=== PATIENT | male | born 1960 | race Caucasian/White ===

== ENCOUNTER 2017-11-23 10:40 | Emergency (ER) | payer OTHER, SELFPAY ==
[2017-11-23 10:44] VITALS: BP 146/87; PULSE 79; RESP 16; O2SAT 96
--- NOTE | 2017-11-23 12:07 | ED_ITS ---
HPI - Abdominal Pain <NIKI Yarbrough - Last Filed: 11/23/17 22:03> General Chief Complaint: Abdominal Pain Stated Complaint: DISCOMFORT/BELLYBUTTON STRING Time Seen by Provider: 11/23/17 12:07 Source: patient Mode of arrival: ambulatory Limitations: no limitations History of Present Illness HPI narrative: 57-year-old male here for complaint of having a scant amount of drainage from his umbilicus area over the past 7-8 months. He reports that he had surgery for umbilical repair to the umbilicus area approximately 2 years ago. He states that he has had some minor discomfort to the area on and off over this past 7 - 8 months as well and has had slight drainage that has been yellowish to sanguinous. He denies any fevers or chills. He denies any abscess to the area. No trauma to the area. He reports that today he was taking a shower and noticed that there was a blue thread that was hanging from his umbilicus area. He denies any discomfort at this timeframe. No other concerns or complaints. MD complaint: other Related Data Home Medications Medication Instructions Recorded Confirmed ibuprofen 1 tab PO Q4H PRN 11/23/17 11/23/17 omeprazole 20 mg PO DAILY 11/23/17 11/23/17 telmisartan [Micardis] 20 mg PO DAILY 11/23/17 11/23/17 Previous Rx's Medication Instructions Recorded levofloxacin [Levaquin] 500 mg PO DAILY #7 tab 11/23/17 Allergies Allergy/AdvReac Type Severity Reaction Status Date / Time naproxen [From NAPROSYN] Allergy Unknown MOUTH SORES Verified 11/23/17 10:44 Sulfa (Sulfonamide Allergy Unknown RASH, Verified 11/23/17 10:44 Antibiotics) URTICARIA [SULFA (SULFONAMIDE ANTIBIOTICS)] Review of Systems <NIKI Yarbrough - Last Filed: 11/23/17 22:03> Constitutional Denies chills, Denies fever(s), Denies lethargy and Denies weakness Eyes Denies change in vision, Denies eye discharge, Denies irritation and Denies loss of vision ENT Ears, Nose, Mouth, and Throat: Denies change in voice, Denies neck pain and Denies sore throat Cardiovascular Denies chest pain, Denies irregular heart rhythm, Denies lightheadedness, Denies palpitations, Denies dyspnea, Denies dyspnea on exertion and Denies orthopnea Respiratory Denies cough, Denies dyspnea, Denies dyspnea on exertion and Denies wheezing Gastrointestinal Comments: Tenderness on and off a to umbilicus area with blue thread protruding from his umbilicus Genitourinary Denies hematuria, Denies flank pain, Denies urinary incontinence and Denies urinary urgency Musculoskeletal Denies neck pain Integumentary/Breasts Denies pruritus, Denies erythema, Denies rash and Denies wounds Neurologic Denies confusion, Denies loss of vision and Denies weakness Psychiatric Denies anxiety, Denies confusion, Denies depression, Denies homicidal ideation and Denies suicidal ideation Endocrine Denies palpitations Hematologic/Lymphatic Denies easy bruising Allergic/Immunologic Denies wheezing Exam <NIKI Yarbrough - Last Filed: 11/23/17 22:03> Initial Vital Signs Initial Vital Signs: Vital Signs Pulse Rate 79 11/23/17 10:44 Respiratory Rate 16 11/23/17 10:44 Blood Pressure 146/87 H 11/23/17 10:44 Pulse Oximetry 96 11/23/17 10:44 Const General: cooperative and well developed Nutritional Appearance: well nourished Orientation: alert, awake, oriented x3 and not confused HENMI Mouth: oral mucosae normal and moist mucous membranes Eyes Conjunctivae: conjunctivae normal Sclera: sclerae normal Pupils: PERRL EOM: EOM intact bilaterally Resp Effort & Inspection: normal respiratory effort, able to speak in complete sentences, no respiratory distress and no use of accessory muscles Auscultation: clear to auscultation bilaterally, no rales, no rhonchi and no wheezes Cardio Rate: regular rate Rhythm: regular rhythm Heart Sounds: no click, no gallops, no murmurs and no rubs Pulses: normal peripheral pulses GI Inspection: non-distended Palpation: soft, no hepatosplenomegaly, No guarding, No pulsatile mass and No tender Auscultation: normal bowel sounds Other: No tenderness on exam to abdominal area or to umbilicus area. No induration or fluctuance. No masses felt. Interior of umbilicus shows small opening of approximately 5 mm with 1 cm of blue protruding suture from the middle of the umbilicus. No drainage Skin General: no rashes or lesions noted, No jaundice and No petechiae Neuro General: alert, oriented x3, gait normal and no focal motor deficits Speech: speech normal <Elvis Vera MD - Last Filed: 11/26/17 08:37> Initial Vital Signs Initial Vital Signs: Vital Signs Pulse Rate 79 11/23/17 10:44 Respiratory Rate 16 11/23/17 10:44 Blood Pressure 146/87 H 11/23/17 10:44 Pulse Oximetry 96 11/23/17 10:44 Course <NIKI Yarbrough - Last Filed: 11/23/17 22:03> Vital Signs - 8 hr 11/23/17 10:44 Pulse Rate 79 Respiratory Rate 16 Blood Pressure 146/87 H Pulse Oximetry 96 <Elvis Vera MD - Last Filed: 11/26/17 08:37> Vital Signs - 8 hr 11/23/17 10:44 Pulse Rate 79 Respiratory Rate 16 Blood Pressure 146/87 H Pulse Oximetry 96 MDM - Abdominal Pain <NIKI Yarbrough - Last Filed: 11/23/17 22:03> MDM Narrative Medical decision making narrative: Signs and symptoms presents as suture from a surgery 2 years ago for umbilical hernia repair protruding from the umbilicus. Discussed case with on-call surgery Dr. petersen who requested that the suture be cut to the skin level here in the emergency room and that patient be placed on Levaquin. And outpatient visit to surgery here in the next few days. Patient is to call surgery office to schedule follow-up appointment. He is prescribed Levaquin. [id number] Tylenol as needed for any discomfort. For any worsening symptoms return to the emergency room. Discharge Plan Departure Patient Disposition: Home, Self-Care Clinical Impression: Abscess involving suture Discharge Date/Time: 11/23/17 13:59 Interventions: ED Discharge Assessment Last Done: 11/23/17 13:58 Instructions: Levofloxacin Activity Restrictions/Additional Instructions: Signs and symptoms presents as suture starting to protrude from a prior surgery site. Follow up with surgery here in the next few days call the office at number provided to schedule outpatient visit. Keep wound dressed with dry dressing change daily. You have been placed on antibiotic called Levaquin use as directed [id number] Tylenol as needed for any discomfort. For any worsening symptoms return to the emergency room. Prescriptions: New levofloxacin [Levaquin] 500 mg tablet 500 mg PO DAILY Qty: 7 RF: 0 No Action omeprazole 20 mg capsule,delayed release(DR/EC) 20 mg PO DAILY RF: 0 telmisartan [Micardis] 20 mg tablet 20 mg PO DAILY RF: 0 ibuprofen 400 mg tablet 1 tab PO Q4H PRN (Reason: Pain, Moderate) RF: 0 Referrals: Provider,Conversion [Non-Staff] - Saira Petersen MD [Physician] - <Elvis Vera MD - Last Filed: 11/26/17 08:37> Sign Out Provider Sign Out Attestation: The PA/REGULATORY SERVICES CONSULTANT functioned independently for the care of this pt, I was available, but not asked to participate in care. I am unable to determine appropriateness of management without personally examining the pt.
[2017-11-23 13:29] VITALS: TEMP 37.1
[2017-11-23 13:37] VITALS: BP 147/96; PULSE 77; RESP 16; TEMP 36.4; O2SAT 97
== END 2017-11-23 13:59 | disposition home or self-care (01) ==
PROVIDERS: Emergency Provider Nurse Practitioner Family; Family Provider Pediatrics
DX: T81.4XXA Infection following a procedure, initial encounter (principal)
CPT/HCPCS: 99282

== ENCOUNTER 2017-12-12 05:55 | Day surgery (SDC) | payer OTHER, SELFPAY ==
[2017-12-12] VITALS (7 sets, daily range): BP systolic 117–149; BP diastolic 75–87; PULSE 74–81; RESP 10–16; TEMP 36.4–36.8; O2SAT 94–100; BMI 35.6
--- NOTE | 2017-12-12 | PATH_ITS ---
[facility] Accession Number: [id number] . 01 Material submitted: . HERNIA SAC - UMBILICUS . 02 Diagnosis: Umbilicus, Hernia Sac, Biopsy: Fragments of fibrous tissue consistent with scar and foreign body giant cell reaction to foreign material, favor suture material. No evidence of neoplasm. [facility]/12/14/2017 . 02 Electronically signed: . Bryanna Prasad MD, Pathologist NPI- [id number] . 01 Gross description: . Received in formalin, labeled hernia sac - umbilicus, is a piece of turner-pink and focally blue stained fibrous tissue (2.5 x 1.2 x 0.6 cm). Bacon Skinner serial sections submitted in cassette A1. (JM:[id number]) /OZO . 02 Pathologist provided ICD-10: R10.9 . 02 CPT . 874145 Performed at: 01 [facility] [address] [facility], [place], [place] [id number] MD Kristian Sewell MD Phone: [phone] Performed at: 02 [facility] [address] [place], [place] [id number] MD Ankur Duran MD Phone: [phone]
[2017-12-12] MEDS: LACTATED RINGERS 1,000 ML 42 ML IV (06:57)
--- NOTE | 2017-12-12 07:50 | SUR.OPER ---
Supine on padded OR bed, head on pillow, arms secured on padded arm boards at <90 degrees abduction, legs uncrossed, safety belt at thigh, tape over blanket over lower legs.
[2017-12-12] MEDS: CEFAZOLIN 2 GM/100 ML FROZ.PIGGY IV (08:58)
--- NOTE | 2017-12-12 09:04 | PM.PREOP ---
Pre-operative Note Interval Note Pre-op Check: Yes History & Physical Reviewed by Physician Changes: No
[2017-12-12] MEDS: LIDOCAINE 1% W/EPI INJ 20 ML INJ (09:36)
[2017-12-12] MEDS: BUPIVACAINE 0.5% (PF) VIAL 30 ML INJ (09:37)
[2017-12-12] MEDS: CEFAZOLIN 1 GM VIAL IV (09:48)
[2017-12-12] MEDS: fentaNYL 100 MCG/2 ML INJ 25 MCG IV ×2 (10:10→10:15)
--- NOTE | 2017-12-12 10:10 | P.OP_ITS ---
Operative Date/Time/Diagnoses Date of procedure: 12/12/17 Time of procedure: 10:05 Pre-op diagnosis: Chronically infected wound Post-op diagnosis: same Procedure & Clinicians Procedure: Exploration of chronically infected wound with removal of all permanent suture and direct repair of recurrent hernia. Same procedure as scheduled: Yes Indications: Chronically infected wound after umbilical hernia repair Surgeon: Saira Petersen Click Yes if Unassisted: Yes Anesthesia Type: General ([place]) Operative Notes Findings: 1. Multiple permanent sutures with some protruding through the umbilical opening. 2. Recurrent 3 cm hernia at the previous operative site Closure Type: primary Specimen(s): other (Portions of hernia sac) Estimated Blood Loss (mL): 5 Blood products transfused: none Procedure in detail: After obtaining informed consent, the patient is brought to the operating room and placed in the supine position on the operating table. Following successful induction of general endotracheal anesthesia, appropriate padding of all bony prominences and placement of appropriate monitors, the abdomen is prepped and draped in the standard surgical fashion a time-out was held per SCOAP protocol. Following infiltration with local anesthetic to create a field block, the healed infraumbilical incision was reopened and carried down through the skin and subcutaneous tissue. At the fascial surface I was able to visualize permanent sutures, consistent with Ethibond, in the fascia and in the skin of the umbilicus. These permanent sutures protruded through the umbilical opening. Using sharp dissection, all permanent sutures and inflammatory material was carefully removed. The wound was irrigated with Ancef containing solution and all particulate matter and inflammatory fluid removed. The edges of the fascia were defined carefully. The resultant 3 cm hernia was closed with interrupted 1 -0 Vicryl sutures. The umbilicus was reconstructed with 3 0 Vicryl. The remaining incisional defect was closed in layers with Vicryl and Monocryl suture after copious irrigation with Ancef solution. A Dermabond dressing was applied. All sponge, needle, and instrument counts were correct at the conclusion of the case. The patient was allowed awaken from anesthesia without difficulty and taken to the postanesthesia care unit in good condition. Complications: none Condition: stable Disposition: PACU Plan for aftercare: 1. Discharge to home 2. Follow up with me in my office in 2 weeks
[2017-12-12] MEDS: OXYCODONE/ACETAMINOPHEN 5/325 TABLET 1 TAB PO (10:30)
== END 2017-12-12 11:03 | disposition home or self-care (01) ==
PROVIDERS: Visit Provider Surgery
PROC: (CPT 49585; principal; 2017-12-12 07:45)
DX: K42.9 Umbilical hernia without obstruction or gangrene (principal); T81.4XXA Infection following a procedure, initial encounter; Z98.890 Other specified postprocedural states; M79.5 Residual foreign body in soft tissue; I10 Essential (primary) hypertension
CPT/HCPCS: 49585; 88304; J0330; J0690; J1100; J2250; J2405; J2704; J3010

== ENCOUNTER → 2021-06-15 09:27 | Outpatient (CLI) | payer OTHER, SELFPAY ==
--- NOTE | 2021-06-15 | DI.MRI.S_ITS ---
PROCEDURE: MR LUMBAR SPINE WO CON INDICATIONS: Spondylolisthesis, lumbar region TECHNIQUE: Noncontrast sagittal T1 spin echo and T2 fast echo, sagittal STIR, axial T1 and T2 fast spin echo through the lumbar spine. In cases with scoliosis, additional coronal T2 fast spin echo may be performed. COMPARISON: [facility] Outside Film, MR, MR LUMBAR SPINE WITHOUT CONTRAST, 12/09/2018, 14:16. [facility], CR, XR LUMBAR SPINE WITH FLEXION EXTENSION 5 VIEWS, 03/25/2021, 9:56. FINDINGS: Image quality: Excellent. Alignment and Curvature: There are 5 lumbar type vertebral bodies present by plain film. There is loss of normal lumbar lordosis. There is mild grade 1 anterolisthesis of L4 on L5 and L5 on S1. Bone Marrow: Marrow is of normal overall signal. No acute vertebral body compression fractures. Bilateral L5-S1 pars interarticularis defects are present. There is mild reactive signal within the endplates adjacent to the L4-L5 and L5-S1 intervertebral discs. Right L5-S1 hemilaminotomy. Spinal Cord: Conus medullaris terminates at the lower L1 level. Visualized cord demonstrates normal signal and size. Paraspinous Soft Tissues: No paravertebral masses. There is a small amount of high T2 signal intensity interspersed between the L3 and L4 spinous processes, as before. T12-L1: Mild disc desiccation. No significant canal, or foraminal stenosis. No significant change. L1-L2: Mild disc desiccation. No significant canal, or foraminal stenosis. No significant change. L2-L3: Mild facet hypertrophy mild epidural lipomatosis. No significant canal, or foraminal stenosis. No significant change. L3-L4: Mild facet and ligamentum flavum hypertrophy. Mild epidural lipomatosis. Mild disc desiccation and diffuse disc bulge. Mild canal stenosis. Mild bilateral foraminal stenosis. No significant change. L4-L5: Moderate disc height loss and desiccation. Mild diffuse disc bulge. Moderate bilateral facet hypertrophy. Mild epidural lipomatosis. Increased, moderate to severe canal stenosis at the lower L4 level. Severe left greater than right foraminal stenosis with left greater than right L4 nerve root compression is unchanged. L5-S1: Moderate disc height loss and desiccation. Mild diffuse disc bulge/osteophyte. Mild bilateral facet hypertrophy. Mild canal stenosis. Moderate to severe left and severe right foraminal stenosis. Right greater than left L5 nerve root compression. No significant change. IMPRESSION: 1. Grade I isthmic spondylolisthesis at L4-L5 and L5-S1. 2. Multilevel degenerative disc and facet disease, as well as ligamentum flavum hypertrophy and epidural lipomatosis. 3. Postsurgical sequelae. 4. Multilevel canal stenoses, worst at the lower L4 level, where there is increased, moderate to severe canal stenosis as described above. 5. Multilevel foraminal stenoses, worst at L4-L5 and L5-S1 where there is associated intraforaminal nerve root compression. Recommend correlation with clinical symptoms to ascertain relevance of this finding. Dictated by: Maxime Ng M.D. on 06/15/2021 at 10:41 Approved by: Maxime Ng M.D. on 06/15/2021 at 10:47
== END ==
PROVIDERS: PCP Physician Assistant Surgical; Referring Provider Physician Assistant Surgical; Visit Provider Physician Assistant Surgical
DX: M43.16 Spondylolisthesis, lumbar region (principal); M43.17 Spondylolisthesis, lumbosacral region; M51.36 Other intervertebral disc degeneration, lumbar region; M51.37 Other intervertebral disc degeneration, lumbosacral region; M48.061 Spinal stenosis, lumbar region without neurogenic claudication; M48.07 Spinal stenosis, lumbosacral region
CPT/HCPCS: 72148

== ENCOUNTER → 2022-09-06 10:18 | Outpatient (CLI) | payer OTHER, SELFPAY ==
--- NOTE | 2022-09-06 | DI.MRI.S_ITS ---
PROCEDURE: MR KNEE LT WO CON INDICATIONS: Pain in left knee TECHNIQUE: Noncontrast sagittal PD fast spin echo and T2 fast spin echo with fat saturation, sagittal 3-D FLASH with fat saturation; coronal T1 spin echo and PD fast spin echo with fat saturation, and axial PD fast spin echo with fat saturation through the knee. COMPARISON: None. FINDINGS: Image quality: Excellent. Anterior Cruciate Ligament: Intact. Posterior Cruciate Ligament: Intact. Medial Collateral Ligament: Mild edema surrounding the proximal to mid medial collateral ligament may be reactive or related to a low-grade sprain. Lateral Collateral Ligament: Intact. Medial Meniscus: There is complex tearing of the medial meniscus. A superiorly displaced flap component is seen at the posterior aspect of the meniscal body with meniscal tissue extending into the medial femoral gutter. There is a horizontal oblique component of the more anterior portion of the meniscal body extending to the inner third of the tibial articular surface. A shallow radial component is seen at the posterior horn as well as horizontal oblique component extending to the middle third of the femoral articular surface. Lateral Meniscus: Intact. Medial and Lateral Tendons: The semimembranosus tendon insertions and meniscocapsular junction appear intact. Visualized portions of the pes anserinus tendons appear normal. No abnormal bursal fluid. The long and short heads of the biceps femoris tendon appear intact. The popliteus tendon appears intact. No signs of posterolateral corner injury. Iliotibial band appears normal. Anterior Structures: The quadriceps and patellar tendons appear intact. No patellar subluxation. No femoral trochlear dysplasia or ventral trochlear prominence. No edema in the infrapatellar fat pad. Bones: No acute trabecular bone injury or fracture. Medial Femorotibial Cartilage: High-grade partial-thickness cartilage loss is seen at the far posterior non weight-bearing portion of the medial femoral condyle. Lateral Femorotibial Cartilage: No focal cartilage defect. Patellofemoral Cartilage: Mild partial-thickness cartilage thinning and surface irregularity in the patellofemoral compartment. Soft Tissues: Moderate joint effusion. Trace medial popliteal cyst. A small amount of fluid is seen tracking along the popliteus tendon sheath. The musculature surrounding the knee is normal in bulk. Nonspecific subcutaneous prepatellar soft tissue edema. IMPRESSION: 1. Complex tearing of the medial meniscus involving the posterior horn and body with multiple horizontal oblique components as well as a shallow radial component at the posterior horn and a superiorly displaced meniscal flap component at the meniscal body. 2. Mild edema surrounding the proximal medial collateral ligament may be reactive to the adjacent meniscal tear versus secondary to a low-grade sprain. 3. Focal grade 3 chondromalacia at the far posterior non weight-bearing portion of the medial femoral condyle. Mild grade 2 chondromalacia in the anterior compartment. 4. Moderate joint effusion. Trace medial and small lateral popliteal cysts. Approved by: Avinash Greenwood M.D. on 09/06/2022 at 11:53
== END ==
PROVIDERS: PCP Family Medicine; Referring Provider Family Medicine; Visit Provider Family Medicine
DX: S83.232A Complex tear of medial meniscus, current injury, left knee, initial encounter (principal); M25.562 Pain in left knee; M25.362 Other instability, left knee; M23.8X9 Other internal derangements of unspecified knee; M94.262 Chondromalacia, left knee; M25.462 Effusion, left knee; M71.22 Synovial cyst of popliteal space [Baker], left knee
CPT/HCPCS: 73721

== ENCOUNTER → 2023-12-31 08:57 | Outpatient (CLI) | payer MEDICARE, OTHER, SELFPAY ==
[2023-12-31 10:44] LABS: Hemoglobin A1C% w Est Avg Glu 5.6 % (4.0-6.0)
[2023-12-31 10:53] LABS: Alanine Aminotransferase 37 IU/L (<50); Albumin 4.4 g/dL (3.5-5.0); Albumin Globulin Ratio 1.8 (1.0-2.8); Alkaline Phosphatase 64 U/L (38-126); Aspartate Aminotransferase 38 IU/L (17-59); BUN Creatinine Ratio 15.6 (6-22); Bilirubin Total 0.6 mg/dL (0.2-1.3); Blood Urea Nitrogen 12 mg/dL (9-20); Calcium 9.6 mg/dL (8.4-10.2); Carbon Dioxide 27 mmol/L (22-32); Chloride 105 mmol/L (98-107); Cholesterol 204 mg/dL (140-199); Estimated Glomerular Filt Rate > 60 mL/min (>60); Globulin 2.5 g/dL (1.7-4.1); Glucose 106 mg/dL (80-110); HDL Cholesterol 60 mg/dL (40-60); HEMOLYSIS < 15 (0-50); LDL Cholesterol Calculated 124 mg/dL (<100); Potassium 4.4 mmol/L (3.4-5.1); Sodium 138 mmol/L (137-145); Total Protein 6.9 g/dL (6.3-8.2); Triglycerides 102 mg/dL (35-150)
[2023-12-31 17:45] LABS: HIV 1 & 2 Ab/Ag 4th Gen Combo NEGATIVE (NEGATIVE); Hep C Virus Ab w/Reflex Quant NEGATIVE s/c (NEGATIVE)
== END ==
PROVIDERS: PCP Family Medicine; Referring Provider Family Medicine; Visit Provider Family Medicine
DX: Z00.00 Encounter for general adult medical examination without abnormal findings (principal); R73.01 Impaired fasting glucose; I10 Essential (primary) hypertension; Z12.5 Encounter for screening for malignant neoplasm of prostate; E78.5 Hyperlipidemia, unspecified; Z13.6 Encounter for screening for cardiovascular disorders; Z12.2 Encounter for screening for malignant neoplasm of respiratory organs; E66.01 Morbid (severe) obesity due to excess calories; Z68.41 Body mass index [BMI] 40.0-44.9, adult
CPT/HCPCS: 36415; 80053; 80061; 83036; 86803; 87389; G0103

== ENCOUNTER → 2024-01-01 12:11 | Outpatient (CLI) | payer MEDICARE, OTHER, SELFPAY ==
[2024-01-03 07:11] LABS: Fecal Immunochemical Test Negative (Negative)
== END ==
PROVIDERS: PCP Family Medicine; Referring Provider Family Medicine; Visit Provider Family Medicine
DX: Z12.11 Encounter for screening for malignant neoplasm of colon (principal)
CPT/HCPCS: 82274

== ENCOUNTER → 2024-01-22 06:50 | Outpatient (CLI) | payer MEDICARE, OTHER, SELFPAY ==
--- NOTE | 2024-01-22 06:52 | DI.CT.S_ITS ---
PROCEDURE: CT LUNG LOW DOSE SCREENING INDICATIONS: screening TECHNIQUE: Noncontrast 2.0-2.5 mm thick sections acquired from the pulmonary apices to the posterior costophrenic angles. 7 mm thick axial MIP, and 5 mm coronal and sagittal reformats were then acquired. For radiation dose reduction, the following was used: automated exposure control, adjustment of mA and/or kV according to patient size. COMPARISON: None. FINDINGS: Image quality: Diagnostic. Lungs and Pleura: Several scattered punctate calcified nodules throughout both lungs. No suspicious pulmonary nodules. Lower Neck: No enlarged lymph nodes. Thyroid: No thyroid nodules within visualized portions of the thyroid lobes which require sonographic follow up, per consensus guidelines. Axillae: No enlarged lymph nodes. Chest Wall: Unremarkable. Bones: Unremarkable. Heart: Heart size is normal. No pericardial effusion. Thoracic Vessels: The aorta and pulmonary arteries demonstrate normal size. Mediastinum and Ciara: No enlarged lymph nodes. Esophagus: No wall thickening. No hiatal hernia. Upper Abdomen: Visualized upper abdomen solid organs and bowel loops appear normal. IMPRESSION: No suspicious pulmonary nodules. LUNG-RADS 1; continued annual screening, if eligible. Clinically Significant Non-pulmonary Findings: None. Dictated by: Aayush De La Garza M.D. on 01/22/2024 at 9:40 Approved by: Aayush De La Garza M.D. on 01/22/2024 at 9:58
--- NOTE | 2024-01-22 06:52 | DI.US.S_ITS ---
PROCEDURE: US ABD AORTA ANEURYSM SCREEN INDICATIONS: Screening TECHNIQUE: Real time scanning was performed of the aorta and iliac arteries, with image documentation. COMPARISON: None. FINDINGS: Aorta: Proximal abdominal aorta is not well visualized. Mid-aorta measures 1.9 cm. Distal aortic diameter is 1.7 cm. Iliac arteries: Right common iliac artery measures 1.1 cm. Left common iliac artery measures 1.0 cm. IMPRESSION: No evidence of AAA involving a visualized abdominal aorta. Dictated by: Aayush De La Garza M.D. on 01/22/2024 at 8:34 Approved by: Aayush De La Garza M.D. on 01/22/2024 at 8:39
== END ==
PROVIDERS: PCP Family Medicine; Referring Provider Family Medicine; Visit Provider Family Medicine
DX: Z12.2 Encounter for screening for malignant neoplasm of respiratory organs (principal); Z13.6 Encounter for screening for cardiovascular disorders; Z87.891 Personal history of nicotine dependence
CPT/HCPCS: 71271; 76706

== ENCOUNTER → 2024-07-07 16:37 | Outpatient (CLI) | payer MEDICARE, OTHER, SELFPAY ==
[2024-07-07 18:01] LABS: Hemoglobin A1C% w Est Avg Glu 5.7 % (4.0-6.0)
== END ==
LOC: LAB 16:38
PROVIDERS: PCP Family Medicine; Referring Provider Family Medicine; Visit Provider Family Medicine
DX: R73.01 Impaired fasting glucose (principal); E66.01 Morbid (severe) obesity due to excess calories; Z68.41 Body mass index [BMI] 40.0-44.9, adult; I10 Essential (primary) hypertension
CPT/HCPCS: 36415; 83036